=== PATIENT | male | born 1970 | race Caucasian/White ===

== ENCOUNTER 2017-01-04 21:45 | Inpatient (IN) | payer OTHER ==
--- NOTE | ~2017-01-04 | PN ---
Unit #: [id number] #: [id number] Patient: AMANDA GREENWOOD [id number] [facility] [address] [place] [address] [id number] I MR#: [id number] NAME: AMANDA GREENWOOD ROOM: P131 Age: 46 Sex: M Admission Date: 01/05/2017 : 1970 Attending Physician: Venus Anthony M.D. Admitting Physician: Venus Anthony M.D. Primary Care Physician: Selvin Dolan PROGRESS NOTES DATE 01/07/2017 DISCUSSION Mr. Greenwood is a 46-year-old male who was seen today and chart was reviewed and case was discussed with the staff. He has been doing fairly well though he reports that he does not want to take any SSRI's and would be willing to take one of the tricyclic antidepressants. Meanwhile, he reports some persistent depression and anxiety. Denies any suicide thoughts. MENTAL STATUS EXAMINATION Middle-aged male who was casually dressed with fair personal hygiene and appears to be in no acute distress or discomfort. He was awake and alert on interaction with intact orientation. His mood was anxious with congruent affect. He denies any suicidal or homicidal ideations. His insight and judgement remains slightly impaired. TREATMENT PLAN Will continue on his current treatment protocol. Will monitor his response and make further adjustments as needed. Dictated by... Selvin Antoine/ian TD: 01/07/2017 17:38 JOB #: [id number] Unit #: [id number] #: [id number] Patient: AMANDA GREENWOOD PROGRESS NOTES Page 1 of 1 X Venus Anthony MD PROGRESS NOTE
--- NOTE | ~2017-01-04 | CO ---
Unit #: [id number] #: [id number] Patient: AMANDA GREENWOOD [id number] [place] [address] [id number] I MR#: [id number] NAME: AMANDA GREENWOOD ROOM: 31 Age: 46 Sex: M Admission Date: 01/05/2017 : 1970 Attending Physician: Venus Anthony M.D. Primary Care Physician: Aleah Hampton M.D. Consultation Date: 01/05/2017 CONSULTATION REPORT INDY Julio is a 46-year-old who underwent abdominal surgery approximately 2 weeks prior to admission. This was addressed in his admission H and P dated 01/05/2017. Dictated by... Nazanin Ash P.A.-C. for Selvin Stewart/sha TD: 01/12/2017 00:39 JOB #: [id number] CONSULTATION REPORT Page 1 of 1 X Nazanin Ash CONSULTATION REPORT
--- NOTE | ~2017-01-04 | PN ---
Unit #: [id number] #: [id number] Patient: AMANDA GREENWOOD [id number] [facility] [address] [place] [address] [id number] I MR#: [id number] NAME: AMANDA GREENWOOD ROOM: [facility] Age: 46 Sex: M Admission Date: 01/05/2017 : 1970 Attending Physician: Venus Anthony M.D. Admitting Physician: Venus Anthony M.D. Primary Care Physician: Selvin Dolan PROGRESS NOTES DATE January 09, 2017 DISCUSSION Mr. Greenwood is a 46-year-old white male, with mood disorder, who was seen today and chart was reviewed and the case was discussed with the staff. He remains anxious, withdrawn, depressed, and rather seclusive to himself but he has been started on Elavil; however, he has not had enough time to respond to the medication. He denies any intolerability issues to the medication. MENTAL STATUS EXAMINATION Middle-aged white male, who was casually dressed with fair personal hygiene and appears to be in no acute distress or discomfort. He was awake and alert with impaired attention and concentration. His mood is anxious and depressed with a congruent affect. He denies any suicidal or homicidal ideations. His insight and judgment remain slightly impaired. TREATMENT PLAN 1. We will continue him on his current medications and treatment protocol, and will monitor his response to the medications, and make further adjustments as needed. 2. We will continue to followup. Dictated by... Selvin Antoine/wesley TD: 01/10/2017 10:04 JOB #: [id number] Unit #: [id number] #: [id number] Patient: AMANDA GREENWOOD PROGRESS NOTES Page 1 of 1 X Venus Anthony MD PROGRESS NOTE
--- NOTE | ~2017-01-04 | PN ---
Unit #: [id number] #: [id number] Patient: AMANDA GREENWOOD [id number] [facility] [address] [place] [address] [id number] I MR#: [id number] NAME: AMANDA GREENWOOD ROOM: 31 Age: 46 Sex: M Admission Date: 01/05/2017 : 1970 Attending Physician: Venus Anthony M.D. Admitting Physician: Venus Anthony M.D. Primary Care Physician: Selvin Dolan PROGRESS NOTES DATE January 08, 2017 DISCUSSION Mr. Greenwood is a 46-year-old white male, who was seen today and chart was reviewed and the case was discussed with the staff. He remains anxious, withdrawn, depressed, and rather seclusive to himself. Meanwhile, he has been cooperative with the treatment recommendations and he has been taking the medications and tolerating them fairly well with no reported side effects. MENTAL STATUS EXAMINATION Middle-aged white male, who was casually dressed with fair personal hygiene and appears to be in no acute distress or discomfort. He was awake and alert with intact orientation. His mood is anxious with a congruent affect. He denies any suicidal or homicidal ideations. His insight and judgment remain slightly impaired. TREATMENT PLAN 1. We will continue him on his current medications and treatment protocol, and will monitor his response to the medications, and make further adjustments as needed. 2. We will continue to followup. Dictated by... Selvin Antoine/wesley TD: 01/09/2017 11:40 JOB #: [id number] Unit #: [id number] #: [id number] Patient: AMANDA GREENWOOD PROGRESS NOTES Page 1 of 1 X Venus Anthony MD X PROGRESS NOTE
--- NOTE | ~2017-01-04 | DS ---
Unit #: [id number] #: [id number] Patient: AMANDA GREENWOOD [id number] [facility] [address] [place] [address] [id number] I MR#: [id number] NAME: AMANAD GREENWOOD ROOM: [facility] Age: 46 Sex: M Admission Date: 01/05/2017 : 1970 Discharge Date: 01/10/2017 Attending Physician: Venus Anthony M.D. Primary Care Physician: Aleah Hampton M.D. DISCHARGE SUMMARY IDENTIFYING DATA Mr. Greenwood is a 46-year-old single white male, who is a resident of [place], [place], and was referred and transferred to us from [facility]. DISCHARGE DIAGNOSES Psychiatric: Major depressive disorder, recurrent, moderate, without psychotic features. Medical: Status post laparotomy. Stressors: Moderate psychosocial stressors. HISTORY OF PRESENT ILLNESS Please see initial psychiatric evaluation for details. PAST PSYCHIATRIC HISTORY Please see initial psychiatric evaluation for details. PAST MEDICAL HISTORY Please see initial psychiatric evaluation for details. HOSPITAL COURSE The patient was admitted to the adult psychiatric unit at [facility]audia [facility]ne and was oriented to the hospital environment. Routine p.r.n. medications were initiated, and he was started back on his home medications and was seen to be anxious, withdrawn, seclusive to himself and was started on Effexor and he stated that he does not like that particular medication and was then started on Celexa and he once again stated that he has tried several different SSRIs over the matter of years, and he does not do good on those and therefore does not want to take Celexa as well and actually requested Elavil and appeared to be quite well acquainted with the medication as he stated that SSRIs do not do good on him and that he would like to try tricyclic antidepressant and particularly requested Elavil which was started and was seen to be doing much better. He was taking the medications regularly and was tolerating them fairly well and was able to show a decent and therapeutic response and as such, it was decided that he will be stepped down to the outpatient treatment program and we will recommend ongoing outpatient psychiatric treatment. DISCHARGE MEDICATIONS Zyprexa 10 mg at bedtime for depression and Elavil 100 mg at bedtime for depression. DISCHARGE CONDITION Unit #: [id number] #: [id number] Patient: AMANDA GREENWOOD. PROGNOSIS Fair. Dictated by... Selvin Antoine/sha TD: 01/11/2017 01:30 JOB #: [id number] DISCHARGE SUMMARY Page 1 of 1 X Venus Anthony MD X DISCHARGE SUMMARY
--- NOTE | ~2017-01-04 | PA ---
Unit #: [id number] #: [id number] Patient: AMANDA TURPIN [id number] [facility] [address] [place] [address] [id number] I MR#: [id number] NAME: AMANDA TURPIN ROOM: P131 Age: 46 Sex: M Admission Date: 01/05/2017 : 1970 Date of Assessment: 01/05/2017 Attending Physician: Venus Anthony M.D. Admitting Physician: Venus Anthony M.D. Primary Care Physician: Aleah Hampton M.D. PSYCHIATRIC ASSESSMENT DATE OF SERVICE 01/05/2017. IDENTIFYING DATA Mr. Turpin is a 46-year-old, single, white male, who is a resident of [place], [place], and was referred and transferred to us from [facility] Emergency Room. CHIEF COMPLAINT "I no longer want to live and I've a plan to walk into traffic and make it look like an accident." HISTORY OF PRESENT ILLNESS Mr. Turpin is a 46-year-old white male, who was transferred to us from [facility] Emergency Room, where he presented stating that he has been having pain from recent surgery and he no longer wants to live and has a plan to walk onto traffic and make it look like an accident, so his children would not know he killed himself and that he cannot get a job due to being a registered sex offender and as such, he has no income, no support, no car, and does report poor social support system. He has feelings of hopelessness and helplessness, and suicidal ideation, and seen to be danger to self and as such, recommendation for inpatient level of care for safety and stabilization was made. The patient was transferred to us. SUBSTANCE ABUSE HISTORY The patient reports history of alcohol abuse in the past, but denies any ongoing substance abuse issues. PAST PSYCHIATRIC HISTORY The patient has not had any prior inpatient or outpatient psychiatric treatment. Review of the medical records indicate that currently he is not active in any treatment program, is not seeing a psychiatrist, and is not taking psychotropic medications. PAST MEDICAL HISTORY The patient's medical history is significant for status post laparotomy. ALLERGIES No known medication allergies. CURRENT MEDICATIONS None. Unit #: [id number] #: [id number] Patient: AMANDA TURPIN PERSONAL AND SOCIAL HISTORY A 46-year-old white male, who reports that he is single, unemployed, and homeless and has poor social support system. MENTAL STATUS EXAMINATION Middle-aged white male, who was casually dressed with fair personal hygiene, appears to be in no acute distress or discomfort. He was awake and alert on interaction with intact orientation to time, place, and person. His mood was anxious and depressed with a congruent affect. His speech was slow and restricted in content. His thought processes were disorganized with some looseness of associations and suicidal ideations. His insight and judgment remain significantly impaired. DIAGNOSTIC IMPRESSION Psychiatric: Major depressive disorder, recurrent, moderate, without psychotic features. Medical: Status post laparotomy. Stressors: Moderate psychosocial stressors. TREATMENT PLAN 1. The patient has presented with a history of mood disorder, and has been decompensating and will need inpatient hospitalization for safety and stabilization. We will start him back on his home medications. We will adjust the medications and monitor response. 2. Supportive therapy was provided to the patient. 3. Safe, structured, and nourishing environment will be reported. ESTIMATED LENGTH OF STAY 5 to 7 days. ABILITY TO HELP SELF Limited. WILLINGNESS TO HELP SELF The patient appears to be willing to help self. STRENGTHS 1. Communicative. 2. Cooperative. PROBLEMS 1. Chronic dysphoric symptoms. 2. Poor social support system. DISCHARGE CRITERIA This will be contingent upon the patient's ability to show resolution of his depression and anxiety and his ability to stay safe to himself, particularly after discharge from the hospital. Dictated by... Venus Anthony M.D. [facility] Unit #: [id number] #: [id number] Patient: AMANDA TURPIN TD: 01/05/2017 23:46 JOB #: [id number] PSYCHIATRIC ASSESSMENT Page 1 of 1 X Venus Anthony MD X PSYCHIATRIC ASSESSMENT
--- NOTE | ~2017-01-04 | PN ---
Unit #: [id number] #: [id number] Patient: AMANDA GREENWOOD [id number] [facility] [address] [place] [address] [id number] I MR#: [id number] NAME: AMANDA GREENWOOD ROOM: [facility] Age: 46 Sex: M Admission Date: 01/05/2017 : 1970 Attending Physician: Venus Anthony M.D. Admitting Physician: Venus Anthony M.D. Primary Care Physician: Selvin Dolan PROGRESS NOTES DATE OF SERVICE 01/05/2017 DISCUSSION Mr. Greenwood is a 46-year-old white male who was seen today. Chart was reviewed and case was discussed with the staff. She has been anxious, withdraw, and rather seclusive to himself. Meanwhile, he has been cooperative with treatment recommendations and has been compliant with treatment recommendations as he has been going to therapy groups but does not want to take his antidepressants stating that SSRIs usually have had negative effects on him. MENTAL STATUS EXAMINATION Middle-aged white male who is casually dressed with fair personal hygiene, appears to be in no acute distress or discomfort. He was awake and alert with impaired attention. His mood is anxious with congruent affect. His speech is slow and restricted in content. His thought processes were disorganized with some looseness of associations. His insight and judgment remain significantly impaired. TREATMENT PLAN 1. We will continue him on his current medications and treatment protocol. We will monitor his response to the medications and make further adjustments as needed. 2. We will continue to follow up. Dictated by... Selvin Antoine/jenn TD: 01/06/2017 11:52 JOB #: [id number] Unit #: [id number] #: [id number] Patient: AMANDA GREENWOOD PROGRESS NOTES Page 1 of 1 X Venus Anthony MD PROGRESS NOTE
--- NOTE | ~2017-01-04 | HP ---
Unit #: [id number] #: [id number] Patient: SUMANTH GREENWOOD [id number] [place] [address] [id number] MR#: [id number] NAME: SUMANTH GREENWOOD ROOM: P131 Age: 46 Sex: M Admission Date: 01/05/2017 : 1970 Attending Physician: Venus Anthony M.D. Admitting Physician: Venus Anthony M.D. Primary Care Physician: Aleah Hampton M.D. HISTORY AND PHYSICAL HISTORY OF PRESENT ILLNESS Sumanth is a 46 year old admitted to [address] [place] [address] with depression and verbalizing wanting to hurt himself. PAST MEDICAL HISTORY Nothing significant. PAST SURGICAL HISTORY 1. Appendectomy. 2. Hernia repair. 3. Small bowel resection, approximately 2 weeks ago. He still has nita in place. ALLERGIES No known drug allergies. SOCIAL HISTORY Smokes 1 pack per day. Denies alcohol and illicit drug use. FAMILY HISTORY Medically noncontributory. REVIEW OF SYSTEMS CONSTITUTIONAL: No fever or chills. HEENT: Denies any sore throat, ear pain or runny nose. CARDIOVASCULAR: Denies chest pain, irregular heart rhythm or palpitations. CHEST: Denies shortness of breath or cough. No hemoptysis. GASTROINTESTINAL: Denies nausea, vomiting, diarrhea or chronic constipation. ENDOCRINE: Denies history of increased thirst or urination. No recent significant weight loss or gain. GENITOURINARY: Denies dysuria, frequency, or hematuria. SKIN: Denies any rashes. HEMATOLOGIC: Denies history of increased bleeding or bruising. MUSCULOSKELETAL: Denies any hot, swollen joints. No generalized muscle pain. NEUROLOGIC: Denies problems with vision or speech. No frequent, severe headaches. No numbness, tingling or weakness in any extremities. Denies loss of bladder or bowel control. CURRENT MEDICATIONS 1. Zyprexa 10 mg q.h.s. 2. Celexa 20 mg daily. Unit #: [id number] #: [id number] Patient: SUMANTH GREENWOOD 3. Effexor XR 75 mg q.a.m. 4. Nicotine patch 21 mg daily. 5. Milk of Magnesia p.r.n. 6. Maalox p.r.n. 7. Tylenol p.r.n. 8. Ibuprofen p.r.n. 9. Percocet 7.5/325 one tab q. 6 hours p.r.n. PHYSICAL EXAMINATION GENERAL: Alert, well-nourished, in no apparent distress. VITAL SIGNS: Blood pressure 120/64, heart rate 80, respirations 16, temperature 98.6. WEIGHT: 166. HEIGHT: 6 feet 0 inches. SKIN: Warm and dry without rash or lesion. HEENT: Normocephalic. TMs not viewed. Oral and nasal passages clear. Conjunctivae clear. PERRLA. EOMs intact. NECK: Supple without lymphadenopathy or thyromegaly. HEART: Regular rate and rhythm without murmur. LUNGS: Clear. ABDOMEN: Soft with diffuse minimal tenderness. Positive bowel sounds in all quadrants. Healing clean surgical incision with nita in place noted. There is good skin approximation. Mild tenderness about the surgical site. : Not done. EXTREMITIES: No evidence of cyanosis, clubbing or edema. Moves all without focal deficit. NEUROLOGICAL: Grossly within normal limits. Cranial Nerves: II: Visual cruz are intact. III, IV AND : Extraocular movements are intact. Pupils are equal, round and reactive to light. V: Facial sensation is grossly normal. VII: Facial movements and expression are normal. VIII: Auditory acuity grossly intact. IX, X: Uvula is midline. Phonation is normal. XI: Patient shrugs shoulders and turns head normally. XII: Tongue protrudes in the midline. Sensory and Motor Function: Sensory and motor sensation is grossly normal. Motor: moves all extremities well. Coordination: Gait is normal. Deep Tendon Reflexes: Intact. IMPRESSION 1. Psychiatric admission. 2. Small bowel resection approximately 2 weeks ago. He still has nita in place. Surgical incision is healing well with no signs of secondary infection. RECOMMENDATIONS PSYCHIATRIC: Per psychiatrist. MEDICAL: 1. See no contraindication to participate in facility's activities. 2. Staple removal by general surgeon. MEDICAL PROGNOSIS Good. MEDICAL CONDITION Stable. Unit #: [id number] #: [id number] Patient: SUMANTH GREENWOOD Dictated by... Nazanin Ash P.A.-C. for Selvin Stewart/ian TD: 01/05/2017 20:26 JOB #: [id number] HISTORY AND PHYSICAL Page 1 of 1 X Nazanin Ash HISTORY AND PHYSICAL
== END 2017-01-10 14:30 | DRG 885 ==
LOC: P1S 01-05 01:45
DX: F33.1 Major depressive disorder, recurrent, moderate (principal); F17.210 Nicotine dependence, cigarettes, uncomplicated; Z98.890 Other specified postprocedural states